=== PATIENT | male | born 1975 | race Asian ===

== ENCOUNTER 2016-09-19 19:11 | Emergency (ER) | payer OTHER ==
[~2016-09-19] VITALS: Ht 182.9 cm; Wt 104.3 kg
[~2016-09-19 19:11] MED LIST: LISI20TA11 PO; LOPRESSOR100 MG PO
[2016-09-19 21:14] VITALS: BP 198/110; TEMP 98.6
== END 2016-09-19 21:19 | disposition home or self-care (01) ==
LOC: ED 19:11
DX: R51 Headache (principal); I10 Essential (primary) hypertension
CPT/HCPCS: 99283

== ENCOUNTER 2016-12-11 07:55 | Emergency (ER) | payer OTHER ==
[~2016-12-11] VITALS: Ht 182.9 cm; Wt 104.3 kg
[2016-12-11 08:04] VITALS: TEMP 98.3
[2016-12-11 08:44] LABS: PLATELET COUNT 215 K/uL (142-355)
[2016-12-11 09:02] LABS: POTASSIUM 3.5 mmol/L (3.6-5.2); SODIUM 134 mmol/L (136-145)
[2016-12-11 13:15] VITALS: BP 143/98
== END 2016-12-11 13:40 | disposition home or self-care (01) ==
LOC: ED 07:55
PROVIDERS: Specialist
DX: K52.9 Noninfective gastroenteritis and colitis, unspecified (principal); N39.0 Urinary tract infection, site not specified
CPT/HCPCS: 80053; 81000; 83690; 85027; 87088; 96361; 96365; 96375; 99284; J0744; J2270; J2405; Q9963

== ENCOUNTER 2017-08-23 08:09 | Emergency (ER) | payer OTHER ==
[~2017-08-23] VITALS: Ht 182.9 cm; Wt 104.3 kg
[2017-08-23 08:18] VITALS: TEMP 98.1
[2017-08-23 09:34] LABS: POTASSIUM 4.2 mmol/L (3.6-5.2)
[2017-08-23 09:36] LABS: PLATELET COUNT 253 K/uL (142-355)
[2017-08-23 13:45] VITALS: BP 176/94
== END 2017-08-23 13:46 | disposition home or self-care (01) ==
LOC: ED 08:09
PROVIDERS: Family Medicine
DX: I16.0 Hypertensive urgency (principal); F14.10 Cocaine abuse, uncomplicated
CPT/HCPCS: 36415; 80053; 80307; 81000; 85027; 96374; 96375; 96376; 99284; J0360; J3490

== ENCOUNTER 2018-07-04 07:34 | Emergency (ER) | payer OTHER ==
[~2018-07-04] VITALS: Ht 182.9 cm; Wt 104.3 kg
[2018-07-04 08:21] LABS: PLATELET COUNT 220 K/uL (142-355)
[2018-07-04 08:27] LABS: POTASSIUM 3.8 mmol/L (3.6-5.2)
[2018-07-04 10:25] VITALS: BP 157/107; TEMP 98.1
== END 2018-07-04 10:25 | disposition home or self-care (01) ==
LOC: ED 07:34
PROVIDERS: Family Medicine
DX: I10 Essential (primary) hypertension (principal)
CPT/HCPCS: 80053; 80307; 81000; 85027; 96374; 99283

== ENCOUNTER 2018-08-31 06:14 | Emergency (ER) | payer OTHER ==
[~2018-08-31] VITALS: Ht 182.9 cm; Wt 104.3 kg
[2018-08-31 06:28] VITALS: TEMP 98.1
[2018-08-31 08:00] LABS: PLATELET COUNT 198 K/uL (142-355)
[2018-08-31 08:04] LABS: POTASSIUM 4.6 mmol/L (3.6-5.2)
[2018-08-31 11:02] VITALS: BP 137/82
== END 2018-08-31 11:02 | disposition home or self-care (01) ==
LOC: ED 06:14
PROVIDERS: Internal Medicine
DX: R10.32 Left lower quadrant pain (principal)
CPT/HCPCS: 36415; 80053; 82150; 83690; 85027; 96374; 99284; J1885; Q9963

== ENCOUNTER 2019-05-02 09:24 | Emergency (ER) | payer OTHER ==
[~2019-05-02] VITALS: Ht 182.9 cm; Wt 90.7 kg
[2019-05-02 09:40] VITALS: TEMP 99
[2019-05-02 10:44] LABS: PLATELET COUNT 224 K/uL (142-355)
[2019-05-02 10:58] LABS: POTASSIUM 4.5 mmol/L (3.6-5.2)
[2019-05-02 11:44] VITALS: BP 170/106
== END 2019-05-02 12:50 | disposition home or self-care (01) ==
LOC: ED 09:24
PROVIDERS: Family Medicine
DX: I10 Essential (primary) hypertension (principal); M51.36 Other intervertebral disc degeneration, lumbar region; R80.9 Proteinuria, unspecified; F17.210 Nicotine dependence, cigarettes, uncomplicated
CPT/HCPCS: 80053; 81000; 85027; 96372; 99283; 99284; J1885

== ENCOUNTER 2019-07-27 07:23 | Emergency (ER) | payer OTHER ==
[~2019-07-27] VITALS: Ht 182.9 cm; Wt 90.7 kg
[2019-07-27 07:46] LABS: PLATELET COUNT 204 K/uL (142-355)
[2019-07-27 07:52] LABS: POTASSIUM 4.2 mmol/L (3.6-5.2)
[2019-07-27 09:55] LABS: PARTIAL THROMBOPLASTIN TIME 25.9 SECONDS (24.5-33.6)
[2019-07-27 11:50] VITALS: BP 180/107; TEMP 98
== END 2019-07-27 11:50 | disposition short-term general hospital (02) ==
LOC: ED 07:23
PROVIDERS: Emergency Medicine; Student in an Organized Health Care Education/Training Program
DX: I63.9 Cerebral infarction, unspecified (principal); I16.1 Hypertensive emergency
CPT/HCPCS: 36415; 80053; 80307; 81000; 82550; 84484; 85027; 85610; 85730; 93005; 96365; 96375; 99285; J0360; J3490

== ENCOUNTER 2019-10-04 21:10 | Emergency (ER) | payer OTHER ==
[~2019-10-04] VITALS: Ht 182.9 cm; Wt 90.7 kg
[2019-10-04 22:05] LABS: PLATELET COUNT 268 K/uL (142-355)
[2019-10-04 22:09] LABS: SODIUM 138 mmol/L (136-145)
[2019-10-05 01:15] VITALS: BP 169/94; TEMP 98.6
== END 2019-10-05 01:15 | disposition home or self-care (01) ==
LOC: ED 21:10
PROVIDERS: Emergency Medicine
DX: M79.601 Pain in right arm (principal); I69.351 Hemiplegia and hemiparesis following cerebral infarction affecting right dominant side; I69.320 Aphasia following cerebral infarction; R41.0 Disorientation, unspecified
CPT/HCPCS: 80053; 82550; 82553; 84484; 85027; 93005; 99283

== ENCOUNTER 2020-04-02 08:03 | Emergency (ER) | payer OTHER ==
[~2020-04-02] VITALS: Ht 182.9 cm; Wt 90.7 kg
[2020-04-02 08:03] VITALS: TEMP 99.8
[2020-04-02] MEDS ORDERED: LIPITOR80 MG PO (08:13)
[2020-04-02] MEDS ORDERED: NIFE30TA PO (08:14)
[2020-04-02] MEDS ORDERED: HYDRALAZINE HY100 MG PO (08:14)
[2020-04-02] MEDS ORDERED: CARV25TA PO (08:15)
[2020-04-02] MEDS ORDERED: LISI20TA11 PO (08:15)
[2020-04-02] MEDS ORDERED: FLUOXETINE20 MG PO (08:16)
[2020-04-02] MEDS ORDERED: ASPIRIN/ENTERIC81 MG PO (08:17)
[2020-04-02 08:52] LABS: PLATELET COUNT 212 K/uL (142-355)
[2020-04-02 09:05] LABS: SODIUM 139 mmol/L (136-145)
[2020-04-02 09:08] LABS: PARTIAL THROMBOPLASTIN TIME 25.9 SECONDS (24.5-33.6)
[2020-04-02 11:48] VITALS: BP 154/103
== END 2020-04-02 11:48 | disposition home or self-care (01) ==
LOC: ED 08:03
PROVIDERS: Family Medicine
DX: J01.80 Other acute sinusitis (principal); R51.9 Headache, unspecified; Z03.818 Encounter for observation for suspected exposure to other biological agents ruled out; F17.290 Nicotine dependence, other tobacco product, uncomplicated
CPT/HCPCS: 80053; 81000; 84484; 85027; 85379; 85610; 85730; 87635; 93005; 99284; U0003

== ENCOUNTER 2020-06-29 09:53 | Emergency (ER) | payer OTHER ==
[~2020-06-29] VITALS: Ht 182.9 cm; Wt 90.7 kg
[2020-06-29 09:53] VITALS: TEMP 99.1
[~2020-06-29 09:53] MED LIST changes: +ASPIRIN/ENTERIC81 MG PO; +CARV25TA PO; +FLUOXETINE20 MG PO; +HYDRALAZINE HY100 MG PO; +LIPITOR80 MG PO; +NIFE30TA PO
[2020-06-29 10:33] LABS: PLATELET COUNT 236 K/uL (142-355)
[2020-06-29 11:12] LABS: POTASSIUM 3.9 mmol/L (3.6-5.2)
[2020-06-29 11:20] LABS: PARTIAL THROMBOPLASTIN TIME 21.6 SECONDS (24.5-33.6)
[2020-06-29 13:05] VITALS: BP 155/74
== END 2020-06-29 13:30 | disposition home or self-care (01) ==
LOC: ED 09:58
PROVIDERS: Emergency Medicine Emergency Medical Services
DX: R56.9 Unspecified convulsions (principal); Z03.818 Encounter for observation for suspected exposure to other biological agents ruled out; Z86.73 Personal history of transient ischemic attack (TIA), and cerebral infarction without residual deficits; Z79.899 Other long term (current) drug therapy; Z51.81 Encounter for therapeutic drug level monitoring
CPT/HCPCS: 80053; 80307; 81000; 85027; 85610; 85730; 87635; 93005; 96360; 96365; 99284; J1953; J3490; U0003

== ENCOUNTER 2020-11-07 21:15 | Emergency (ER) | payer OTHER ==
[2020-11-21 15:50] LABS: POTASSIUM 3.9 mmol/L (3.6-5.2); SODIUM 141 mmol/L (136-145)
[2020-11-21 15:52] LABS: PARTIAL THROMBOPLASTIN TIME 23.2 SECONDS (24.5-33.6)
== END 2020-11-08 00:26 | disposition home or self-care (01) ==
LOC: ED 21:15
PROVIDERS: Emergency Medicine
DX: M79.601 Pain in right arm (principal); R79.89 Other specified abnormal findings of blood chemistry; Z86.718 Personal history of other venous thrombosis and embolism; I10 Essential (primary) hypertension; I69.351 Hemiplegia and hemiparesis following cerebral infarction affecting right dominant side; J30.1 Allergic rhinitis due to pollen
CPT/HCPCS: 36415; 80053; 80185; 84484; 85027; 85379; 85610; 85730; 99283

== ENCOUNTER 2021-12-15 19:23 | Emergency (ER) | payer BC ==
[~2021-12-15] VITALS: Ht 182.9 cm; Wt 90.7 kg
[2021-12-15 20:27] LABS: PLATELET COUNT 253 K/uL (142-355)
[2021-12-15 20:44] LABS: POTASSIUM 3.5 mmol/L (3.6-5.2)
[2021-12-15 23:25] VITALS: BP 176/111; TEMP 98.7
== END 2021-12-15 23:25 | disposition home or self-care (01) ==
LOC: ED 19:23
PROVIDERS: Emergency Medicine Emergency Medical Services
DX: J01.40 Acute pansinusitis, unspecified (principal); J20.9 Acute bronchitis, unspecified; Z11.52 Encounter for screening for COVID-19
CPT/HCPCS: 36415; 80053; 84484; 85027; 87502; 87635; 93005; 94664; 96360; 96365; 99284; J0696; Q9963; U0003

== ENCOUNTER 2022-01-31 23:15 | Emergency (ER) | payer BC | END 2022-02-01 00:28 | disposition left against medical advice (07) | LOC: ED 23:15 | DX: Z53.21 Procedure and treatment not carried out due to patient leaving prior to being seen by health care provider (principal) ==